=== PATIENT | male | born 1980 | race Caucasian/White ===

== ENCOUNTER 2017-05-27 18:25 | Emergency (ER) | payer OTHER ==
[~2017-05-27] VITALS: Ht 175.3 cm; Wt 111.1 kg
[~2017-05-27 18:25] MED LIST: BACTRIM DS TAB1 EACH PO; CLINDAMYCIN HC300 MG PO; FLOVENT HFA12 G1 INH; IBUPROFEN800 MG PO; KEFLEX500 MG PO; NORCO 5-325 TA1 EACH PO; PENICILLIN V P500 MG PO; PREDNISONE20 MG PO; PROVENTIL HFA6.7 GM INH; ULTRAM50 MG PO
[2017-05-27] MEDS ORDERED: TRAMADOL HCL50 MG PO (19:59)
[2017-05-27] MEDS ORDERED: PREDNISONE20 MG PO (19:59)
[2017-05-27] MEDS ORDERED: PROVENTIL HFA6.7 GM INH (19:59)
== END 2017-05-27 20:26 | disposition home or self-care (01) ==
LOC: ED 18:25
DX: R07.89 Other chest pain (principal); J20.9 Acute bronchitis, unspecified; J45.909 Unspecified asthma, uncomplicated; F17.200 Nicotine dependence, unspecified, uncomplicated
CPT/HCPCS: 71020; 99283

== ENCOUNTER 2019-02-14 14:03 | Emergency (ER) | payer OTHER ==
[~2019-02-14] VITALS: Ht 175.3 cm; Wt 122.5 kg
[~2019-02-14 14:03] MED LIST changes: +TRAMADOL HCL50 MG PO
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
[2019-02-14] MEDS ORDERED: NORCO 5-325 TA1 EACH PO (18:06)
== END 2019-02-14 18:25 | disposition home or self-care (01) ==
LOC: ED 14:03
DX: S32.591A Other specified fracture of right pubis, initial encounter for closed fracture (principal); S32.401A Unspecified fracture of right acetabulum, initial encounter for closed fracture; S32.601A Unspecified fracture of right ischium, initial encounter for closed fracture; V89.2XXA Person injured in unspecified motor-vehicle accident, traffic, initial encounter; F17.200 Nicotine dependence, unspecified, uncomplicated
CPT/HCPCS: 72192; 73502; 99284-25